=== PATIENT | female | born 1990 | race Hispanic/Latino ===

== ENCOUNTER 2024-03-13 13:19 | Emergency (ER) | payer BC ==
[2024-03-13] MEDS: Albuterol/Ipratropium 3.0-0.5 MG/3 ML Neb Soln ONE (13:35)
[2024-03-13] MEDS: Albuterol/Ipratropium 3.0-0.5 MG/3 ML Neb Soln NEB ONE (13:35)
[2024-03-13] MEDS: Albuterol 0.083% 2.5 MG/3 ML Neb Soln NEB ONE (13:36)
[2024-03-13] MEDS: Albuterol 0.083% 2.5 MG/3 ML Neb Soln ONE (13:36)
[2024-03-13] MEDS: predniSONE 20 MG Tab PO ONE (16:27)
== END 2024-03-13 16:28 | disposition home or self-care (01) ==
LOC: JD.ED 13:19
DX: J45.901 Unspecified asthma with (acute) exacerbation (principal); Z79.899 Other long term (current) drug therapy; Z88.5 Allergy status to narcotic agent
CPT/HCPCS: 71045; 94640; 99283; J7512; J7620-GY

== ENCOUNTER 2024-05-04 18:21 | Emergency (ER) | payer BC ==
[2024-05-04 19:04] LABS: BASOPHILS ABSOLUTE AUTO 0.1 K/mm3 (0.0-0.2); BASOPHILS PERCENT AUTO 0.5 % (0.0-1.0); EOSINOPHILS ABSOLUTE AUTO 0.8 K/mm3 (0.0-0.4); EOSINOPHILS PERCENT AUTO 5.2 % (0.0-6.0); HEMATOCRIT 41.6 % (37.0-47.0); HEMOGLOBIN 14.7 gm/dl (12.0-16.0); IMMATURE GRAN ABSOLUTE AUTO 0.06 K/mm3 (0.00-0.05); IMMATURE GRAN PERCENT AUTO 0.4 % (0.0-0.4); LYMPHOCYTES ABSOLUTE AUTO 3.3 K/mm3 (1.0-4.8); MEAN CORPUSCULAR HEMOGLOBIN 30.4 pg (28.0-32.0); MEAN CORPUSCULAR HGB CONC 35.3 g/dl (32.0-36.0); MEAN CORPUSCULAR VOLUME 86.1 fl (83.0-99.0); MEAN PLATELET VOLUME 9.5 fl (9.4-12.3); MONOCYTES ABSOLUTE AUTO 1.1 K/mm3 (0.0-0.8); MONOCYTES PERCENT AUTO 7.1 % (0.0-8.0); NEUTROPHILS ABSOLUTE AUTO 9.6 K/mm3 (1.8-7.7); NEUTROPHILS PERCENT AUTO 64.8 % (41.0-71.0); PLATELET COUNT,PLT 320 K/mm3 (150-400); RED BLOOD CELL COUNT 4.83 M/mm3 (4.10-5.30); WHITE BLOOD CELL COUNT,WBC 14.88 K/mm3 (3.9-11.3)
[2024-05-04] MEDS: Sodium Chloride 0.9% 10 ML Syringe FLUSH PRN (19:09)
[2024-05-04] MEDS: diphenhydrAMINE 50 MG/ML SDV IVPUSH ONE (19:09)
[2024-05-04] MEDS: Ondansetron 4 MG/2 ML SDV IVPUSH ONE (19:09)
[2024-05-04] MEDS: methylPREDNISolone Sodium Succinate 125 MG/2 ML SDV IVPUSH ONE (19:09)
[2024-05-04] MEDS: Famotidine 20 MG/2 ML SDV IVPUSH ONE (19:09)
[2024-05-04 19:23] LABS: ALBUMIN 4.2 g/dl (3.4-5.0); ANION GAP 16.3 (5-15); BILIRUBIN TOTAL 0.8 mg/dL (0.2-1.0); CALCIUM 9.6 mg/dL (8.5-10.1); CREATININE 0.9 mg/dL (0.55-1.02); EST CRCL DRUG DOSING (CG) 72.86 mL/min; POTASSIUM,K 3.3 mEq/L (3.5-5.1); PROTEIN TOTAL,TP 8.5 g/dl (6.4-8.2)
== END 2024-05-04 21:15 | disposition home or self-care (01) ==
LOC: JD.ED 18:21
DX: T78.40XA Allergy, unspecified, initial encounter (principal); J45.909 Unspecified asthma, uncomplicated; Z79.899 Other long term (current) drug therapy; Z88.5 Allergy status to narcotic agent
CPT/HCPCS: 36415; 80053; 85025; 96374; 96375; 99283; J1200; J2405; J2919; J3490; 99284

== ENCOUNTER 2024-05-16 00:02 | Emergency (ER) | payer BC ==
[2024-05-16] MEDS: Albuterol/Ipratropium 3.0-0.5 MG/3 ML Neb Soln NEB ONE (00:24)
[2024-05-16] MEDS: Magnesium Sulfate/Water Premix 2 GM in Premix Bag 1 BAG IV SCH (00:31)
[2024-05-16] MEDS: diphenhydrAMINE 50 MG/ML SDV IVPUSH ONE (00:32)
[2024-05-16] MEDS: methylPREDNISolone Sodium Succinate 125 MG/2 ML SDV IVPUSH ONE (00:32)
[2024-05-16] MEDS: Famotidine 20 MG Tab PO ONE (00:32)
[2024-05-16] MEDS: Sodium Chloride 0.9% 1,000 ML IV SCH (00:32)
[2024-05-16] MEDS: Albuterol 0.5% 2.5 MG/0.5 ML Neb Soln NEB ONE (00:47)
== END 2024-05-16 02:17 | disposition home or self-care (01) ==
LOC: JD.ED 00:02
DX: J45.41 Moderate persistent asthma with (acute) exacerbation (principal); Z79.899 Other long term (current) drug therapy; Z88.5 Allergy status to narcotic agent
CPT/HCPCS: 94640; 96365; 96366; 96375; 99284-25; A9270-GY; J1200; J2919; J3475; J7030; J7620-GY